=== PATIENT | female | born 1950 ===

== ENCOUNTER 2017-03-02 13:06 | Emergency (ER) | payer OTHER ==
[2017-03-02 13:26] VITALS: BMI 23.0
[2017-03-02 13:30] VITALS: RESP 18; TEMP 98.2
--- NOTE | 2017-03-02 14:09 | C.PDOC ---
History Of Present Illness 66 y/o female presents to ED for evaluation on burning sensation to throat since yesterday. Patient states she tried OTC cough medicine and cleared throat with mild sputum. Patient denies fever, chills or any other complaints at this time. At ED patient states symptoms resolved but wants to be evaluated to make sure she has no infection. Time Seen by Provider: 03/02/17 13:45 Chief Complaint (Nursing): ENT Problem History Per: Patient History/Exam Limitations: None Onset/Duration Of Symptoms: Days Current Symptoms Are (Timing): Gone Past Medical History Reviewed: Historical Data, Nursing Documentation, Vital Signs Vital Signs: Last Vital Signs Temp 98.2 F 03/02/17 13:26 Pulse 78 03/02/17 14:29 Resp 18 03/02/17 14:29 BP 119/68 03/02/17 14:29 Pulse Ox 99 03/02/17 14:40 - Medical History PMH: Back Problems (herinated disc) Surgical History: No Surg Hx Family History: States: No Known Family Hx - Social History Hx Tobacco Use: No Hx Alcohol Use: No Hx Substance Use: No - Immunization History Hx Tetanus Toxoid Vaccination: No Hx Influenza Vaccination: Yes Hx Pneumococcal Vaccination: No Review Of Systems Constitutional: Negative for: Fever, Chills ENT: Positive for: Throat Pain Cardiovascular: Negative for: Chest Pain Respiratory: Negative for: Cough, Shortness of Breath Gastrointestinal: Negative for: Nausea, Vomiting Skin: Negative for: Rash Physical Exam - Physical Exam Appears: Non-toxic, No Acute Distress Skin: Normal Color, Warm, Dry, No Rash Head: Atraumatic, Normacephalic Eye(s): bilateral: Normal Inspection Oral Mucosa: Moist Throat: Normal, No Erythema Neck: Normal ROM, Supple Chest: Symmetrical Cardiovascular: Rhythm Regular, No Murmur Respiratory: Normal Breath Sounds, No Rales, No Rhonchi, No Wheezing Extremity: Normal ROM, Capillary Refill (<2 seconds) Neurological/Psych: Oriented x3 ED Course And Treatment O2 Sat by Pulse Oximetry: 99 (RA) Pulse Ox Interpretation: Normal Medical Decision Making Medical Decision Making: pt with burning sensation in throat yesterday with phlegm, no pain now. no difficulty swallowing. rapid strep negative. Disposition Counseled Patient/Family Regarding: Diagnosis, Need For Followup - Disposition Referrals: Dann Moya MD [Primary Care Provider] - Disposition: HOME/ ROUTINE Disposition Time: 14:12 Condition: STABLE Additional Instructions: Si el dolor vuelve a la garganta, cuca grgaras con agua salada caliente varias veces al da. Cuca un seguimiento con madrigal mdico en unos hernández. Instructions: Pharyngitis (ED) Forms: [email or web address] (Ivorian), [email or web address] (Belizean), Gen Discharge Inst Bel[place]an Print Language: PALAUAN - Clinical Impression Clinical Impression: Pharyngitis - PA / [employer] / Resident Statement MD/DO has reviewed & agrees with the documentation as recorded. - Scribe Statement The provider has reviewed the documentation as recorded by the Scribe Art Rossi All medical record entries made by the Emily were at my direction and personally dictated by me. I have reviewed the chart and agree that the record accurately reflects my personal performance of the history, physical exam, medical decision making, and the department course for this patient. I have also personally directed, reviewed, and agree with the discharge instructions and disposition.
[2017-03-02 14:30] VITALS: BP 119/68; PULSE 78
[2017-03-02 14:40] VITALS: O2SAT 99
== END 2017-03-02 14:31 | disposition home or self-care (01) ==
LOC: C.ER 13:06 → SUPCPDRO 13:06 → C.ER 14:31
DX: J02.9 Acute pharyngitis, unspecified (principal)